=== PATIENT | female | born 1975 | race Caucasian/White ===

== ENCOUNTER → 2024-05-30 20:24 | Outpatient (REF) | payer OTHER, SELFPAY | LOC: MRI 20:24 | PROVIDERS: ATTENDING PHYSICIAN Podiatrist Foot & Ankle Surgery; FAMILY PHYSICIAN Family Medicine | DX: M79.671 Pain in right foot (principal) | CPT/HCPCS: 73720; A9575 ==

== ENCOUNTER → 2024-10-30 16:02 | Outpatient (REF) | payer OTHER, SELFPAY | LOC: WDC 16:02 | PROVIDERS: ATTENDING PHYSICIAN Physician Assistant Medical | DX: Z12.31 Encounter for screening mammogram for malignant neoplasm of breast (principal) | CPT/HCPCS: 77063; 77067 ==